=== PATIENT | female | born 1965 | race Caucasian/White ===

== ENCOUNTER → 2020-11-09 | Outpatient (CLI) | payer MEDICARE, MEDICAID ==
[~2020-11-09] MED LIST: CLAR5CHW OR; DYAZ37.5 OR; FURO80TA2 OR; LOPERAMIDE OR; METH5TAB2 OR; PERC7.5T8 OR; PHEN 25 OR; PROV10TA OR; REMICADE IV; REQU1TAB16 OR; SERT100T OR; SING10TA31 OR; VICO5TAB OR; [UNRECOGNIZED DRUG - OTHER]; [UNRECOGNIZED DRUG - OTHER] TOP
--- NOTE | 2020-11-09 12:51 | REP ---
INDICATION: CHRONIC VENOUS HTN W/ ULCER LT EXT / CHRONIC ULCER. COMPARISON: None. TECHNIQUE: Duplex ultrasound of the left lower extremity arteries. FINDINGS: Brachial peak systole: NA mmHg Dorsalis pedis peak systole: NA mmHg DIAMOND DRILLER peak systole: NA mmHg TONY: Patient could not tolerate because of ulcer on lower leg. DATA PROCESSING OPERATOR: 85.4 velocity, 4 triphasic phasicity Profunda: 44 point velocity, basic phasicity SFA prox: 96.6 velocity, 1 triphasic phasicity SFA mid: 97.4 velocity, four triphasic phasicity SFA dist: 62.2 velocity, triphasic phasicity Pop: 55.4 velocity, triphasic phasicity GREGORY prox: 5.8 velocity, triphasic phasicity Tib/P tr: 58.2 velocity, triphasic phasicity DIAMOND DRILLER pr: 65.8 velocity, triphasic phasicity DIAMOND DRILLER dst: 54.1 velocity, biphasic phasicity GREGORY dst: 24.5 velocity, biphasic phasicity IMPRESSION: There is mild atheromatous plaque throughout the left lower extremity. There are triphasic and biphasic waveforms throughout the left lower extremity. No stenoses are identified. <Electronically signed by Jalen Enrique > 11/09/20 [id number]
== END ==
LOC: M RAD 11:20
PROVIDERS: ATTEND Physician Assistant
DX: I87.312 Chronic venous hypertension (idiopathic) with ulcer of left lower extremity (principal); L97.822 Non-pressure chronic ulcer of other part of left lower leg with fat layer exposed

== ENCOUNTER → 2023-09-11 | Outpatient (CLI) | payer MEDICARE, MEDICAID | LOC: M RAD 13:20 | PROVIDERS: ATTEND Student in an Organized Health Care Education/Training Program | DX: S52.591A Other fractures of lower end of right radius, initial encounter for closed fracture (principal) ==